=== PATIENT | female | born 1955 | race Caucasian/White ===

== ENCOUNTER 2025-06-02 15:28 | Emergency (ER) | payer OTHER ==
--- NOTE | 2025-06-02 17:30 | RAD REPORT ---
EXAM: CT Head Brain Wo Cont HISTORY: fall COMPARISON: None TECHNIQUE: Multiple contiguous axial images were obtained for a CT of the brain without contrast. Sag ittal and coronal reformats were performed. One or more of the following dose reduction techniques were used: Automated exposure control, adjus tment of the mA and kV according to patient size, and iterative reconstruction. Unless otherwise specified, incidental findings do not require dedicated imaging follow-up. FINDINGS: No evidence of hydrocephalus, intracranial hemorrhage, or extra-axial fluid collection. Right opercular and lateral temporal encephalomalacia suggesting sequelae of remote ischemia. The calvarium is intact. The visualized paranasal sinuses and mastoid air cells are essentially clear . IMPRESSION: No evidence of acute intracranial abnormality. Sequelae of right MCA territory remote ischemia as abo ve.
--- NOTE | 2025-06-02 17:53 | EDPHYS ---
Physician Documentation [facility] Name: Halley Willams Age: 69 yrs Sex: Female : 1955 Arrival Date: 06/02/2025 Time: 15:28 Bed 16 Private MD: ED Physician Jose Ricci HPI: 06/02 16:10 This 69 yrs old Female presents to ER via Ambulatory with complaints of Fall Injury - cr8 HEAD, BUTTOCKS. 16:10 Patient is a 69-year-old female with a history of hypertension CVA atrial fibrillation cr8 in the [facility] emergency room because she fell. Reports she slipped getting into the truck and fell back and hit her head. There is no LOC, no vomiting, no neurological changes. However she is on blood thinners so she came to get evaluated. No other injury reported. Neurologically intact on exam. GCS is 15.. Historical: - Allergies: 16:08 No Known Allergies; dd2 - PMHx: 16:08 Hypertensive disorder; Cerebrovascular accident; dd2 16:08 Atrial fibrillation; dd2 - PSHx: 16:08 Appendectomy; dd2 - Immunization history:: Adult Immunizations up to date. - Infectious Disease History:: Denies. - Social history:: Smoking status: Patient denies any tobacco usage or history of. ROS: 16:10 Constitutional: as per HPI cr8 Exam: 16:10 Constitutional: This is a well developed, well nourished patient who is awake, alert, cr8 and in no acute distress. Head/Face: Normocephalic, atraumatic. Eyes: Pupils equal round and reactive to light, extra-ocular motions intact. Conjunctiva and sclera are non-icteric and not injected. Neck: Trachea midline, no thyromegaly or masses palpated, and no cervical lymphadenopathy. Supple, full range of motion without nuchal rigidity, or vertebral point tenderness. No Meningismus. Back: No spinal tenderness. No costovertebral tenderness. Full range of motion. Skin: Warm, dry with normal turgor. Normal color with no rashes, no lesions, and no evidence of cellulitis. MS/ Extremity: Pulses equal, no cyanosis. Neurovascular intact. Full, normal range of motion. Neuro: Awake and alert, GCS 15, oriented to person, place, time, and situation. Cranial nerves II-XII grossly intact. Motor strength 5/5 in all extremities. Sensory grossly intact. Vital Signs: 16:03 BP 152 / 100; Pulse 66; Resp 16; Temp 98.4; Pulse Ox 100% on R/A; Weight 69.4 kg; Pain dd2 3/10; 17:30 BP 145 / 86; Pulse 63; Resp 16; Pulse Ox 100% on R/A; db 16:03 Pain Scale: Adult dd2 Chunky Coma Score: 18:12 Eye Response: spontaneous(4). Motor Response: obeys commands(6). Verbal Response: db oriented(5). Total: 15. MDM: 15:53 Medical Screening Exam initiated cr8 18:32 Data reviewed: vital signs, nurses notes, radiologic studies, CT scan. Counseling: I cr8 had a detailed discussion with the patient and/or guardian regarding the historical points, exam findings, and any diagnostic results supporting the discharge/admit diagnosis, radiology results, to return to the emergency department if symptoms worsen or persist or if there are any questions or concerns that arise at home. ED course: Patient fell and hit her head. She is on blood thinners so we did a CT of the head. CT of head did not show intracranial hemorrhage, basilar skull fracture, increased intracranial pressure/impending herniation, WILFRED, non-accidental trauma or c-spine injury. Patients GCS is 15, mechanism is low energy and there is no history of LOC . Reevaluated patient her GCS remained 15. Discussed return precautions. She verbalized understanding was agreeable. Did consider doing other imaging of the low back but the patient has no vertebral tenderness on examination.. 06/02 16:05 Order name: CT Head Brain wo Cont; Complete Time: 17:44 cr8 Administered Medications: No medications were administered Disposition: 20:21 I was immediately available on-site in the Emergency Department for consultation in the dc3 care of the patient. Disposition Summary: 06/02/25 17:53 Discharge Ordered Notes: Location: Home cr8 Condition: Stable cr8 Diagnosis - Fall on same level, unspecified cr8 - Unspecified injury of head, initial encounter cr8 Followup: cr8 - With: Private Physician - When: 5 - 6 days - Reason: Recheck today's complaints, Re-evaluation by your physician Followup: cr8 - With: Emergency Department - When: As needed - Reason: Worsening of condition Discharge Instructions: - Discharge Summary Sheet cr8 - Head Injury, Adult cr8 Forms: - Medication Reconciliation Form cr8 - Antibiotic Education cr8 - Prescription Opioid Use cr8 - Patient Portal Instructions cr8 - Leadership Thank You Letter cr8 Signatures: Dispatcher [employer] EDJose Vizcaino DO DO ms3 IIRS YATES RN RN dd2 Varun Neely NP CAD OPERATOR cr8 Corrections: (The following items were deleted from the chart) 16:08 16:08 PSHx: None; dd2 dd2
--- NOTE | 2025-06-02 17:53 | ER ---
Nurse's Notes [facility] Name: Halley Willams Age: 69 yrs Sex: Female : 1955 Arrival Date: 06/02/2025 Time: 15:28 Bed 16 Private MD: Diagnosis: Fall on same level, unspecified;Unspecified injury of head, initial encounter Presentation: 06/02 16:03 Chief complaint: Patient states: WENT TO CLIMB INTO TRUCK, SLIPPED AND FELL BACKWARDS dd2 HITTING HEAD AND BUTTOCKS. PT DENIES LOC. Coronavirus screen: At this time, the client does not indicate any symptoms associated with coronavirus-19. Ebola Screen: No symptoms or risks identified at this time. Initial Sepsis Screen: Does the patient meet any 2 criteria? No. Patient's initial sepsis screen is negative. Does the patient have a suspected source of infection? No. Patient's initial sepsis screen is negative. Risk Assessment: Do you want to hurt yourself or someone else? Patient reports no desire to harm self or others. Onset of symptoms was June 02, 2025. 16:03 Method Of Arrival: Ambulatory dd2 16:03 Acuity: LESLEY 3 dd2 Triage Assessment: 16:08 General: Appears in no apparent distress. uncomfortable, well groomed, well nourished, dd2 Behavior is calm, cooperative, appropriate for age. Pain: Complains of pain in scalp Pain currently is 3 out of 10 on a pain scale. Neuro: Level of Consciousness is awake, alert, obeys commands, Oriented to person, place, time, situation, Appropriate for age Tie Up Worker are equal bilaterally Moves all extremities. Gait is steady, Speech is normal, Facial symmetry appears normal, Pupils are PERRLA, Intact. Historical: - Allergies: 16:08 No Known Allergies; dd2 - PMHx: 16:08 Hypertensive disorder; Cerebrovascular accident; dd2 16:08 Atrial fibrillation; dd2 - PSHx: 16:08 Appendectomy; dd2 - Immunization history:: Adult Immunizations up to date. - Infectious Disease History:: Denies. - Social history:: Smoking status: Patient denies any tobacco usage or history of. Screenin:08 [facility] ED Fall Risk Assessment (Adult) History of falling in the last 3 months, db including since admission Yes- single mechanical fall (1 pt) Confusion or Disorientation No (0 pts) Intoxicated or Sedated No (0 pts) Impaired Gait No (0 pts) Mobility Assist Device Used No (0 pt) Altered Elimination No (0 pt) Score/Fall Risk Level 0 - 2 = Low Risk Oriented to surroundings, Maintained a safe environment. Abuse screen: Denies threats or abuse. Denies injuries from another. Nutritional screening: No deficits noted. Tuberculosis screening: No symptoms or risk factors identified. Assessment: 17:30 Reassessment: Patient appears in no apparent distress at this time. Patient and/or db family updated on plan of care and expected duration. Pain level reassessed. Patient is alert, oriented x 3, equal unlabored respirations, skin warm/dry/pink. General: Appears in no apparent distress. comfortable, Behavior is calm, cooperative. Neuro: Level of Consciousness is awake, alert, obeys commands, Oriented to person, place, time, situation. 18:08 Reassessment: Patient appears in no apparent distress at this time. Patient and/or db family updated on plan of care and expected duration. Pain level reassessed. Patient is alert, oriented x 3, equal unlabored respirations, skin warm/dry/pink. Vital Signs: 16:03 BP 152 / 100; Pulse 66; Resp 16; Temp 98.4; Pulse Ox 100% on R/A; Weight 69.4 kg; Pain dd2 3/10; 17:30 BP 145 / 86; Pulse 63; Resp 16; Pulse Ox 100% on R/A; db 16:03 Pain Scale: Adult dd2 Antione Coma Score: 18:12 Eye Response: spontaneous(4). Motor Response: obeys commands(6). Verbal Response: db oriented(5). Total: 15. ED Course: 15:38 Patient arrived in ED. cj3 15:46 Varun Neely NP is PHCP. cr8 15:46 Jose Ricci DO is Attending Physician. cr8 16:08 Triage completed. dd2 16:08 Arm band placed on right wrist. dd2 16:38 CT Head Brain wo Cont In Process Unspecified. EDMS 17:59 Jesusita Cason, RN is Primary Nurse. db 17:59 Patient has correct armband on for positive identification. Bed in low position. Call db light in reach. Side rails up X 1. Provided Education on: DISCHARGE. Pulse ox on. NIBP on. Warm blanket given. Pillow given. 17:59 No provider procedures requiring assistance completed. Patient did not have IV access db during this emergency room visit. Administered Medications: No medications were administered Medication: 18:08 VIS not applicable for this client. db Outcome: 17:53 Discharge ordered by MD. zuluaga 18:08 Discharged to home ambulatory, db 18:08 Condition: stable 18:08 Discharge instructions given to patient, Instructed on discharge instructions, follow up and referral plans. 18:12 Patient left the ED. db Signatures: Dispatcher [employer] EDJesusita Smith RN RN IRIS Montgomery RN RN dd2 Rosita Chaidez 3 Varun Neely NP CHILDREN'S ATTENDANT cr8 Corrections: (The following items were deleted from the chart) 16:08 16:08 PSHx: None; dd2 dd2
[2025-06-02 18:50] VITALS: TEMP 98.4; O2SAT 100
[2025-06-02 18:52] VITALS: BP 145/86
== END 2025-06-02 18:12 | disposition home or self-care (01) ==
LOC: ER 15:28
DX: S09.90XA Unspecified injury of head, initial encounter (principal); W18.09XA Striking against other object with subsequent fall, initial encounter
CPT/HCPCS: 70450; 99283